=== PATIENT | male | born 1980 | race Caucasian/White ===

== ENCOUNTER 2020-01-08 19:16 | Emergency (ER) | payer MEDICAID ==
[~2020-01-08] VITALS: Ht 177.8 cm; Wt 111.4 kg
[2020-01-08 19:28] VITALS: BP 127/70
[2020-01-08] MEDS ORDERED: HYDR-4383 PO (20:40)
== END 2020-01-08 21:00 | disposition home or self-care (01) ==
LOC: ER 19:17
DX: S02.609A Fracture of mandible, unspecified, initial encounter for closed fracture (principal); Z88.0 Allergy status to penicillin; Z79.899 Other long term (current) drug therapy; Y04.2XXA Assault by strike against or bumped into by another person, initial encounter; Y93.89 Activity, other specified; Y92.89 Other specified places as the place of occurrence of the external cause; Y99.8 Other external cause status
CPT/HCPCS: 70486; 99284

== ENCOUNTER 2023-12-09 13:06 | Inpatient (IN) | payer OTHER, MEDICAID ==
[~2023-12-09] VITALS: Ht 177.8 cm; Wt 121.4 kg
[~2023-12-09 13:06] MED LIST: HYDR-4383 PO
[2023-12-09 13:55] LABS: BASOPHILS % (AUTO) 0.6 % (0-1); EOSINOPHILS # (AUTO) 0.2 X10'3 (0-0.9); EOSINOPHILS % (AUTO) 2.2 % (0-6); HEMATOCRIT 29.2 % (42.0-52.0); HEMOGLOBIN 9.9 g/dl (14.0-17.9); LYMPHOCYTES # (AUTO) 1.7 X10'3 (1.1-4.8); LYMPHOCYTES % (AUTO) 24.3 % (21-51); MEAN CORPUSCULAR HEMOGLOBIN 37.1 PG (27.0-31.0); MEAN CORPUSCULAR HGB CONC 33.8 g/dL (33.0-36.5); MEAN CORPUSCULAR VOLUME 109.6 FL (78-98); MEAN PLATELET VOLUME 8.7 FL (7.4-10.4); MONOCYTES # (AUTO) 0.7 X10'3 (0-0.9); MONOCYTES % (AUTO) 10.7 % (2-12); NEUTROPHILS # (AUTO) 4.3 X10'3 (1.8-7.7); NEUTROPHILS % (AUTO) 62.2 % (42-75); PLATELET COUNT 187 X10'3 (140-440); RED BLOOD COUNT 2.66 X10'6 (4.70-6.10); RED CELL DISTRIBUTION WIDTH 13.1 % (11.5-14.5); WHITE BLOOD COUNT 6.9 X10'3 (4.5-11.0)
[2023-12-09 14:13] LABS: ALANINE AMINOTRANSFERASE 97 U/L (12-78); ALBUMIN 3.8 G/DL (3.4-5.0); ALBUMIN/GLOBULIN RATIO 0.7 (1.1-1.5); ALKALINE PHOSPHATASE 113 IU/L (46-116); ANION GAP 16 (8-16); ASPARTATE AMINO TRANSFERASE 117 U/L (10-37); BILIRUBIN,TOTAL 0.8 MG/DL (0.1-1.0); BLOOD UREA NITROGEN 91 MG/DL (7-18); BUN/CREATININE RATIO 10.5 (10.0-20.0); CALCIUM 8.5 MG/DL (8.5-10.1); CHLORIDE 100 MMOL/L (99-107); CREATININE 8.66 MG/DL (0.60-1.10); GLUCOSE 130 MG/DL (70-104); POTASSIUM 5.8 MMOL/L (3.5-5.1); SODIUM 135 MMOL/L (135-145); TOTAL CARBON DIOXIDE 19.5 MMOL/L (24-32); eCRCL 11 ML/MIN; eGFR 7 ML/MIN
[2023-12-09 18:11] LABS: MAGNESIUM 0.9 MG/DL (1.5-2.4)
[2023-12-09] MEDS ORDERED: potassium Cl 40MEQ/1/2NS 520ml 520 ML IV PRN (18:20)
[2023-12-09] MEDS ORDERED: potassium Cl 20 mEq SR tablet PO PRN ×2 (18:20)
[2023-12-09] MEDS ORDERED: magnesium hydroxide 30ml (MOM) UD suspension PO PRN (18:20)
[2023-12-09] MEDS ORDERED: acetaminophen 325mg tablet PO PRN (18:20)
[2023-12-09] MEDS ORDERED: ondansetron/PF 4mg/2ml inj IV PRN (18:20)
[2023-12-09] MEDS ORDERED: mag hydrox/Alum hydrox/simeth 30ml oral suspension PO PRN (18:20)
[2023-12-09] MEDS: magnesium 2GM in 50ml NS 50 ML IV ONE (18:23)
[2023-12-09 19:01] LABS: CKMB RELATIVE INDEX 0.3 RATIO (0-2.5); CREATINE KINASE 353 U/L (39-308); CREATINE KINASE MB 1.1 ng/ml (0.3-3.6)
[2023-12-09 19:38] LABS: ALBUMIN 4.1 G/DL (3.4-5.0); ANION GAP 15 (8-16); BLOOD UREA NITROGEN 89 MG/DL (7-18); BUN/CREATININE RATIO 11.3 (10.0-20.0); CALCIUM 8.9 MG/DL (8.5-10.1); CHLORIDE 98 MMOL/L (99-107); CREATININE 7.88 MG/DL (0.60-1.10); GLUCOSE 107 MG/DL (70-104); SODIUM 133 MMOL/L (135-145); TOTAL CARBON DIOXIDE 20.4 MMOL/L (24-32); eCRCL 12 ML/MIN; eGFR 7 ML/MIN
[2023-12-09 19:44] LABS: POTASSIUM 6.1 MMOL/L (3.5-5.1)
[2023-12-09] MEDS: docusate sod 100mg capsule PO SCH (20:00)
[2023-12-09] MEDS ORDERED: albuterol 2.5 MG/3 ML nebule NEB SCH (20:00)
[2023-12-09] MEDS: K and/or MAG REPLACEMENT MC SCH (20:00)
[2023-12-09] MEDS: insulin regular, human 10 units/0.1 ml syringe IV ONE (20:05)
[2023-12-09 20:08] LABS: RHEUM FACTOR QUAL REFLEX TITER NEGATIVE (Neg)
[2023-12-09] MEDS ORDERED: calcium gluconate inj. 1 GM in normal saline 100ml IV soln 40 ML IV ONE (20:25)
[2023-12-09] MEDS: CALCIUM GLUC 1gm/50ml NACL,iso 50 ML IV ONE (20:49)
[2023-12-09] MEDS: dextrose 50%-water 50ml dispensing syringe IV ONE (21:03)
[2023-12-09 21:40] VITALS: BP 105/63; PULSE 101; RESP 18; TEMP 97.7; O2SAT 100
[2023-12-09] MEDS: sodium polystyrene sulfonate 15gm/60ml oral suspension PO ONE (21:47)
[2023-12-09] MEDS: ringers solution, lacted 1,000 ML IV SCH (21:47)
[2023-12-09] MEDS: albuterol 2.5 MG/3 ML nebule CONTNEB PRN (22:31)
[2023-12-09 22:34] VITALS: PULSE 110; RESP 20; O2SAT 98
[2023-12-09 22:45] VITALS: BP 103/62; PULSE 95
[2023-12-09 23:50] VITALS: PULSE 106; RESP 16; O2SAT 95
[2023-12-10] VITALS (36 sets, daily range): BP systolic 67–116; BP diastolic 31–75; PULSE 73–106; RESP 12–32; TEMP 98.1–99; O2SAT 92–100
[2023-12-10] LABS: BILIRUBIN,URINE NEGATIVE (Neg); CLARITY,URINE SLIGHTLY CLOUDY (Clear); COLOR,URINE YELLOW (Yellow); GLUCOSE, URINE NEGATIVE (Neg); KETONES,URINE TRACE mg/dl (Neg); LEUKOCYTE ESTERASE ,URINE NEGATIVE (Neg); NITRITES, URINE NEGATIVE (Neg); OCCULT BLOOD,URINE NEGATIVE (Neg); PH,URINE 5.5 (4.8-8.0); PROTEIN,URINE 30 mg/dl (Neg); UROBILINOGEN,URINE 0.2 E.U/dL (0.2-1.0)
[2023-12-10 00:16] LABS: UA COLLECTION TYPE NON-SPECIFIED
[2023-12-10 00:17] LABS: SQUAMOUS EPITHELIAL CELL,UR FEW /LPF (FEW)
[2023-12-10 00:20] LABS: RBC,URINE NONE SEEN /HPF (0-2); WBC,URINE 0-4 /HPF (0-4)
[2023-12-10 00:21] LABS: BACTERIA,URINE 2+ /HPF (Neg)
[2023-12-10 00:22] LABS: AMORPHOUS URATES 2+; CAL OXALATE CRYSTALS FEW /HPF (NEGATIVE)
[2023-12-10 00:53] LABS: SODIUM,URINE RANDOM 22 MEQ/L; URINE AMPHETAMINE SCREEN NEGATIVE (Neg); URINE BARBITUATE SCREEN NEGATIVE (Neg); URINE BENZODIAZEPINES SCREEN NEGATIVE (Neg); URINE CANNABINOID SCREEN NEGATIVE (Neg); URINE COCAINE SCREEN NEGATIVE (Neg); URINE METHADONE SCREEN NEGATIVE (Neg); URINE OPIATE SCREEN NEGATIVE (Neg); URINE PHENCYCLIDINE SCREEN NEGATIVE (Neg)
[2023-12-10 01:12] LABS: ABG BASE EXCESS -7.6 mmol/L (-2.0-2.0); ABG HCO3 16.2 mmol/L (22.0-26.0); ABG PCO2 (T) 27.2 mmHg (35.0-48.0); ABG PH (T) 7.392 (7.340-7.440); ALLEN'S TEST POSITIVE; FCOHb 0.3 % (0.0-3.9); FLOW 2 L/min; FMetHb 0.3 % (0.0-1.5); FO2Hb 96.4 % (94-97); MODE NASAL CANNULA; PATIENT TEMPERATURE 37.2; TOTAL HEMOGLOBIN 9.4 G/dl (14.0-17.9)
[2023-12-10] MEDS: ringers solution, lactated 500ml IV solution IV ONE (01:15)
[2023-12-10] MEDS: sodium bicarbonate (8.4%) 1 mEq/ml syringe IV ONE (01:22)
[2023-12-10 01:25] LABS: UA EOSINOPHILS FEW EOS /HPF
[2023-12-10] MEDS: normal saline 1000ml 1,000 ML IV ONE ×4 (01:25→04:06)
[2023-12-10 01:35] LABS: ALBUMIN 3.5 G/DL (3.4-5.0); ANION GAP 18 (8-16); BLOOD UREA NITROGEN 90 MG/DL (7-18); BUN/CREATININE RATIO 11.4 (10.0-20.0); CALCIUM 8.9 MG/DL (8.5-10.1); CHLORIDE 100 MMOL/L (99-107); CREATININE 7.87 MG/DL (0.60-1.10); GLUCOSE 167 MG/DL (70-104); POTASSIUM 4.5 MMOL/L (3.5-5.1); SODIUM 135 MMOL/L (135-145); TOTAL CARBON DIOXIDE 17.1 MMOL/L (24-32); eCRCL 12 ML/MIN; eGFR 8 ML/MIN
[2023-12-10 01:58] LABS: OSMOLALITY UA 477 MOSM/K (50-1400)
[2023-12-10 02:12] LABS: MAGNESIUM 1.3 MG/DL (1.5-2.4)
[2023-12-10] MEDS: magnesium 2GM in 50ml NS 50 ML IV PRN (02:57)
[2023-12-10] MEDS ORDERED: haloperidol lactate 5mg/ml inj IM PRN (03:55)
[2023-12-10] MEDS ORDERED: dextrose 50%-water 50ml dispensing syringe IV PRN (03:55)
[2023-12-10] MEDS ORDERED: LORazepam 2 mg/ml vial IV PRN ×2 (03:55)
[2023-12-10] MEDS ORDERED: ALLO100T PO (06:25)
[2023-12-10] MEDS ORDERED: PANT40TA54 PO (06:25)
[2023-12-10] MEDS ORDERED: CALC60CR8 TOP (06:25)
[2023-12-10] MEDS ORDERED: PRED20TA PO (06:25)
[2023-12-10] MEDS ORDERED: LISI40TA13 PO (06:25)
[2023-12-10] MEDS: thiamine 100mg/ml 2ml inj. IV SCH (08:12)
[2023-12-10] MEDS: chlordiazePOXIDE 25mg capsule PO SCH (08:12)
[2023-12-10 08:16] LABS: BASOPHILS % (AUTO) 0.6 % (0-1); EOSINOPHILS # (AUTO) 0.1 X10'3 (0-0.9); EOSINOPHILS % (AUTO) 2.6 % (0-6); HEMATOCRIT 24.1 % (42.0-52.0); HEMOGLOBIN 8.1 g/dl (14.0-17.9); LYMPHOCYTES # (AUTO) 1.2 X10'3 (1.1-4.8); LYMPHOCYTES % (AUTO) 25.8 % (21-51); MEAN CORPUSCULAR HGB CONC 33.5 g/dL (33.0-36.5); MEAN CORPUSCULAR VOLUME 110.3 FL (78-98); MEAN PLATELET VOLUME 8.5 FL (7.4-10.4); MONOCYTES # (AUTO) 0.5 X10'3 (0-0.9); MONOCYTES % (AUTO) 9.6 % (2-12); NEUTROPHILS % (AUTO) 61.4 % (42-75); PLATELET COUNT 135 X10'3 (140-440); RED BLOOD COUNT 2.19 X10'6 (4.70-6.10); WHITE BLOOD COUNT 4.8 X10'3 (4.5-11.0)
[2023-12-10 08:31] LABS: ALANINE AMINOTRANSFERASE 73 U/L (12-78); ALBUMIN 3.1 G/DL (3.4-5.0); ALBUMIN/GLOBULIN RATIO 0.7 (1.1-1.5); ALKALINE PHOSPHATASE 86 IU/L (46-116); ANION GAP 13 (8-16); ASPARTATE AMINO TRANSFERASE 76 U/L (10-37); BILIRUBIN,TOTAL 0.7 MG/DL (0.1-1.0); BLOOD UREA NITROGEN 77 MG/DL (7-18); BUN/CREATININE RATIO 14.1 (10.0-20.0); CALCIUM 7.5 MG/DL (8.5-10.1); CHLORIDE 107 MMOL/L (99-107); CHOL/HDL RATIO 3.3 (0.00-4.99); CHOLESTEROL 196 MG/DL (0-200); CREATININE 5.47 MG/DL (0.60-1.10); GLUCOSE 113 MG/DL (70-104); HDL CHOLESTEROL 59 MG/DL (35-60); LDL CHOLESTEROL 108 MG/DL (50-100); MAGNESIUM 1.6 MG/DL (1.5-2.4); PHOSPHORUS 5.1 MG/DL (2.3-4.5); POTASSIUM 4.8 MMOL/L (3.5-5.1); SODIUM 142 MMOL/L (135-145); TOTAL CARBON DIOXIDE 22.4 MMOL/L (24-32); TOTAL PROTEIN 7.3 G/DL (6.4-8.2); TRIGLYCERIDES 141 MG/DL (20-135); eCRCL 18 ML/MIN; eGFR 11 ML/MIN
[2023-12-10 08:38] LABS: APTT 23 SECONDS (22-32); INR 1.1 INR; PROTHROMBIN TIME 11.4 SECONDS (9.0-12.0)
[2023-12-10 08:55] LABS: HEMOGLOBIN A1C 5.5 % (4.5-6.2)
[2023-12-10] MEDS: normal saline 1000ml 1,000 ML IVB ONE ×2 (09:40→09:58)
[2023-12-10] MEDS: normal saline 1000ml 1,000 ML IV SCH (09:40)
[2023-12-10] MEDS: LidoCAINE 2% Topical Jelly 11mL syringe (UROJET) TOP ONE (09:58)
[2023-12-10] MEDS: folic acid 1mg/0.2ml inj IV SCH (10:30)
[2023-12-10 13:57] LABS: ALBUMIN 3.2 G/DL (3.4-5.0); ANION GAP 13 (8-16); BLOOD UREA NITROGEN 64 MG/DL (7-18); BUN/CREATININE RATIO 16.1 (10.0-20.0); CALCIUM 7.2 MG/DL (8.5-10.1); CHLORIDE 107 MMOL/L (99-107); CREATININE 3.98 MG/DL (0.60-1.10); GLUCOSE 163 MG/DL (70-104); MAGNESIUM 1.3 MG/DL (1.5-2.4); PHOSPHORUS 3.5 MG/DL (2.3-4.5); POTASSIUM 4.5 MMOL/L (3.5-5.1); SODIUM 140 MMOL/L (135-145); TOTAL CARBON DIOXIDE 19.7 MMOL/L (24-32); eCRCL 24 ML/MIN; eGFR 16 ML/MIN
[2023-12-10 14:57] LABS: ETHANOL < 10 MG/DL (<10)
[2023-12-10] MEDS: magnesium 4gm in 100ml NS 100 ML IV PRN (15:39)
[2023-12-10] MEDS: heparin, porcine 5000 units/ml vial SQ SCH (19:47)
[2023-12-11] VITALS (20 sets, daily range): BP systolic 95–126; BP diastolic 50–81; PULSE 73–103; RESP 15–29; TEMP 97.3–98.7; O2SAT 89–100
[2023-12-11 06:20] LABS: APTT 22 SECONDS (22-32); INR 1.1 INR; PROTHROMBIN TIME 11.5 SECONDS (9.0-12.0)
[2023-12-11 06:28] LABS: ALANINE AMINOTRANSFERASE 66 U/L (12-78); ALBUMIN 2.8 G/DL (3.4-5.0); ALBUMIN/GLOBULIN RATIO 0.6 (1.1-1.5); ALKALINE PHOSPHATASE 102 IU/L (46-116); ANION GAP 10 (8-16); ASPARTATE AMINO TRANSFERASE 73 U/L (10-37); BILIRUBIN,TOTAL 0.6 MG/DL (0.1-1.0); BLOOD UREA NITROGEN 40 MG/DL (7-18); BUN/CREATININE RATIO 20.4 (10.0-20.0); CALCIUM 7.1 MG/DL (8.5-10.1); CHLORIDE 111 MMOL/L (99-107); CREATININE 1.96 MG/DL (0.60-1.10); GLUCOSE 91 MG/DL (70-104); MAGNESIUM 1.3 MG/DL (1.5-2.4); PHOSPHORUS 3.3 MG/DL (2.3-4.5); SODIUM 141 MMOL/L (135-145); TOTAL CARBON DIOXIDE 19.7 MMOL/L (24-32); TOTAL PROTEIN 7.2 G/DL (6.4-8.2); eCRCL 50 ML/MIN; eGFR 37 ML/MIN
[2023-12-11 06:30] LABS: POTASSIUM 5.1 MMOL/L (3.5-5.1)
[2023-12-11] MEDS: magnesium Cl slow-release 64mg tablet PO PRN (07:03)
[2023-12-11] MEDS: pantoprazole 40mg Tablet.DR PO SCH (07:03)
[2023-12-11 08:43] LABS: BASOPHILS % (AUTO) 0.7 % (0-1); EOSINOPHILS # (AUTO) 0.2 X10'3 (0-0.9); EOSINOPHILS % (AUTO) 4.4 % (0-6); HEMATOCRIT 26.9 % (42.0-52.0); HEMOGLOBIN 8.9 g/dl (14.0-17.9); LYMPHOCYTES # (AUTO) 1.5 X10'3 (1.1-4.8); LYMPHOCYTES % (AUTO) 32.9 % (21-51); MEAN CORPUSCULAR HEMOGLOBIN 37.2 PG (27.0-31.0); MEAN CORPUSCULAR HGB CONC 33.3 g/dL (33.0-36.5); MEAN CORPUSCULAR VOLUME 111.8 FL (78-98); MEAN PLATELET VOLUME 8.8 FL (7.4-10.4); MONOCYTES # (AUTO) 0.3 X10'3 (0-0.9); MONOCYTES % (AUTO) 7.3 % (2-12); NEUTROPHILS # (AUTO) 2.5 X10'3 (1.8-7.7); NEUTROPHILS % (AUTO) 54.7 % (42-75); PLATELET COUNT 138 X10'3 (140-440); RED BLOOD COUNT 2.41 X10'6 (4.70-6.10); RED CELL DISTRIBUTION WIDTH 13.2 % (11.5-14.5); WHITE BLOOD COUNT 4.6 X10'3 (4.5-11.0)
[2023-12-11 08:49] LABS: ALBUMIN 3.1 G/DL (3.4-5.0); ANION GAP 9 (8-16); BLOOD UREA NITROGEN 35 MG/DL (7-18); CALCIUM 7.1 MG/DL (8.5-10.1); CHLORIDE 111 MMOL/L (99-107); CREATININE 1.84 MG/DL (0.60-1.10); GLUCOSE 120 MG/DL (70-104); PHOSPHORUS 2.3 MG/DL (2.3-4.5); POTASSIUM 4.6 MMOL/L (3.5-5.1); SODIUM 142 MMOL/L (135-145); TOTAL CARBON DIOXIDE 22.3 MMOL/L (24-32); eCRCL 53 ML/MIN; eGFR 40 ML/MIN
[2023-12-11 10:00] LABS: TOTAL CELLS COUNTED 100
[2023-12-11 10:01] LABS: PLATELET ESTIMATE DECREASED; STOMATOCYTES 1+
[2023-12-11 14:11] LABS: ANION GAP 9 (8-16); BLOOD UREA NITROGEN 29 MG/DL (7-18); BUN/CREATININE RATIO 17.7 (10.0-20.0); CHLORIDE 109 MMOL/L (99-107); CREATININE 1.64 MG/DL (0.60-1.10); GLUCOSE 141 MG/DL (70-104); SODIUM 142 MMOL/L (135-145); TOTAL CARBON DIOXIDE 23.9 MMOL/L (24-32); eCRCL 59 ML/MIN; eGFR 46 ML/MIN
[2023-12-11 15:06] LABS: FOLATE SERUM(FOLIC) 8.1 ng/mL (>3.0)
[2023-12-11] MEDS: chlordiazePOXIDE 25mg capsule PO SCH (17:35)
[2023-12-11] MEDS: magnesium oxide 400mg tablet PO SCH (17:36)
[2023-12-11 22:08] LABS: ALBUMIN 2.8 G/DL (3.4-5.0); ANION GAP 10 (8-16); BLOOD UREA NITROGEN 27 MG/DL (7-18); BUN/CREATININE RATIO 15.9 (10.0-20.0); CALCIUM 6.8 MG/DL (8.5-10.1); CHLORIDE 112 MMOL/L (99-107); GLUCOSE 117 MG/DL (70-104); MAGNESIUM 1.1 MG/DL (1.5-2.4); PHOSPHORUS 1.7 MG/DL (2.3-4.5); SODIUM 142 MMOL/L (135-145); TOTAL CARBON DIOXIDE 20.4 MMOL/L (24-32); eCRCL 57 ML/MIN; eGFR 44 ML/MIN
[2023-12-11 22:12] LABS: POTASSIUM 4.5 MMOL/L (3.5-5.1)
[2023-12-12 02:00] VITALS: BP 102/60; PULSE 77; RESP 16; TEMP 97.9; O2SAT 98
[2023-12-12 06:43] LABS: BASOPHILS % (AUTO) 0.6 % (0-1); EOSINOPHILS # (AUTO) 0.2 X10'3 (0-0.9); HEMATOCRIT 23.2 % (42.0-52.0); HEMOGLOBIN 7.8 g/dl (14.0-17.9); LYMPHOCYTES # (AUTO) 1.3 X10'3 (1.1-4.8); LYMPHOCYTES % (AUTO) 27.9 % (21-51); MEAN CORPUSCULAR HEMOGLOBIN 37.8 PG (27.0-31.0); MEAN CORPUSCULAR HGB CONC 33.6 g/dL (33.0-36.5); MEAN CORPUSCULAR VOLUME 112.4 FL (78-98); MEAN PLATELET VOLUME 8.8 FL (7.4-10.4); MONOCYTES # (AUTO) 0.6 X10'3 (0-0.9); MONOCYTES % (AUTO) 11.9 % (2-12); NEUTROPHILS # (AUTO) 2.6 X10'3 (1.8-7.7); NEUTROPHILS % (AUTO) 55.6 % (42-75); PLATELET COUNT 122 X10'3 (140-440); RED BLOOD COUNT 2.06 X10'6 (4.70-6.10); RED CELL DISTRIBUTION WIDTH 13.3 % (11.5-14.5); WHITE BLOOD COUNT 4.8 X10'3 (4.5-11.0)
[2023-12-12 06:47] LABS: APTT 25 SECONDS (22-32); INR 1.1 INR; PROTHROMBIN TIME 11.8 SECONDS (9.0-12.0)
[2023-12-12 06:55] LABS: ALANINE AMINOTRANSFERASE 57 U/L (12-78); ALBUMIN 2.7 G/DL (3.4-5.0); ALBUMIN/GLOBULIN RATIO 0.7 (1.1-1.5); ALKALINE PHOSPHATASE 102 IU/L (46-116); ANION GAP 6 (8-16); ASPARTATE AMINO TRANSFERASE 56 U/L (10-37); BILIRUBIN,TOTAL 0.6 MG/DL (0.1-1.0); BLOOD UREA NITROGEN 23 MG/DL (7-18); BUN/CREATININE RATIO 16.9 (10.0-20.0); CALCIUM 7.2 MG/DL (8.5-10.1); CHLORIDE 113 MMOL/L (99-107); CREATININE 1.36 MG/DL (0.60-1.10); GLUCOSE 105 MG/DL (70-104); POTASSIUM 4.9 MMOL/L (3.5-5.1); SODIUM 142 MMOL/L (135-145); TOTAL CARBON DIOXIDE 23.4 MMOL/L (24-32); TOTAL PROTEIN 6.7 G/DL (6.4-8.2); eCRCL 72 ML/MIN; eGFR 57 ML/MIN
[2023-12-12 08:00] VITALS: RESP 24; O2SAT 96
[2023-12-12] MEDS: normal saline 1000ml 1,000 ML IV SCH (08:55)
[2023-12-12 10:06] LABS: ANTINUCLEAR ANTIBODIES Negative (Negative)
[2023-12-12] MEDS ORDERED: THIA50TA10 PO (13:01)
[2023-12-12] MEDS ORDERED: FOLI0.4T14 PO (13:01)
[2023-12-13 07:36] LABS: A/G RATIO 0.8 (0.7-1.7); ALBUMIN 3.9 g/dL (2.9-4.4); ALPHA-1-GLOBULIN 0.3 g/dL (0.0-0.4); ALPHA-2-GLOBULIN 0.9 g/dL (0.4-1.0); BETA GLOBULIN 1.5 g/dL (0.7-1.3); GAMMA GLOBULIN 1.9 g/dL (0.4-1.8); GLOBULIN, TOTAL 4.6 g/dL (2.2-3.9); HBSAG SCREEN Negative (Negative); HEP A AB, IGM Negative (Negative); HEPATITIS C VIRUS ANTIBODY Non Reactive (Non Reactive); M-SPIKE Not Observed g/dL (Not Observed); PROTEIN, TOTAL, SERUM 8.5 g/dL (6.0-8.5)
[2023-12-14] MEDS ORDERED: folic acid 1mg tablet PO SCH (08:00)
[2023-12-14] MEDS ORDERED: thiamine 100mg tablet PO SCH (08:00)
== END 2023-12-12 15:50 | disposition home or self-care (01) | DRG 640 ==
LOC: ER 13:07 → ED HOLD 18:28 → EDBEDREQ 20:33 → PCU 3S 21:40 → CICU 2S 12-10 04:51 → PCU 3S 12-11 14:50
PROVIDERS: ADMIT Family Medicine; ATTEND Family Medicine
DX: E86.0 Dehydration (principal); N17.0 Acute kidney failure with tubular necrosis; F10.230 Alcohol dependence with withdrawal, uncomplicated; E87.20 Acidosis, unspecified; E87.5 Hyperkalemia; I10 Essential (primary) hypertension; K21.9 Gastro-esophageal reflux disease without esophagitis; D64.9 Anemia, unspecified; M19.041 Primary osteoarthritis, right hand; E83.42 Hypomagnesemia; Z79.899 Other long term (current) drug therapy
CPT/HCPCS: 36415; 36600; 71045; 76770; 80048; 80053; 80061; 80305; 80320; 81001; 81003; 82550; 82553; 82570; 82607; 82746; 82803; 82948; 83036; 83735; 83935; 84100; 84133; 84155; 84156; 84165; 84166; 84300; 85007; 85018; 85025; 85610; 85730; 86038; 86430; 86709; 86803; 87081; 87207; 87340; 87522; 93005; 94640; 94760; 94799; 96365; 99285; A4615; A5200; A6196; A6253; C1758; G0378; J0610; J1644; J1815; J3411; J3475; J3490; J7030; J7040; J7120